=== PATIENT | female | born 1985 | race American Indian/Alaskan Native ===

== ENCOUNTER 2019-10-22 05:39 | Emergency (ER) | payer BC, MEDICAID, OTHER ==
[2019-10-22 06:43] LABS: Basophils % (Auto) 0.5 % (0.0-1.8); Eosinophils # (Auto) 0.1 K/mm3 (0.0-0.4); Eosinophils % (Auto) 2.1 % (0.0-4.3); Hematocrit 38.3 % (30.3-42.9); Hemoglobin 12.5 gm/dl (10.1-14.3); Lymphocytes # (Auto) 2.1 K/mm3 (1.2-5.4); Lymphocytes % (Auto) 32.5 % (13.4-35.0); Mean Corpuscular HGB Conc 33 % (30-34); Mean Corpuscular Volume 75 fl (79-97); Monocytes # (Auto) 0.5 K/mm3 (0.0-0.8); Monocytes % (Auto) 8.5 % (0.0-7.3); Platelet Count 221 K/mm3 (140-440); Red Blood Count 5.08 M/mm3 (3.65-5.03); Red Cell Distribution Width 14.4 % (13.2-15.2)
--- NOTE | 2019-10-22 07:22 | Ultrasound Report ---
ULTRASOUND OBSTETRIC INDICATION: vaginal bleeding. TECHNIQUE: Transabdominal and Transvaginal. COMPARISON: None available. FINDINGS: The uterus measures 7.5 x 3.9 x 5.0 cm. No intrauterine is identified. The endometrial stri pe is normal and measures 5 mm in thickness. No masses are seen. The ovaries are normal in size and appearance with expected color flow. The right ovary measures 2.4 x 1.2 x 1.6 cm and the left ovary measures 3.1 x 1.2 x 2.2 cm. No free fluid is seen. IMPRESSION: 1. No sonographic evidence of an intrauterine or ectopic . 2. No acute abnormality of the pelvis. Signer Name: Dewayne Biggs MD Signed: 10/22/2019 7:17 AM Workstation Name: [id number]
[2019-10-22] MEDS ORDERED: IBUPROFEN 800 MG TAB PO ONE (07:31)
--- NOTE | 2019-10-22 07:32 | Emergency Department Report ---
ED Female HPI - General Chief complaint: Vaginal Bleeding Stated complaint: EMESIS/VAGINAL BLEEDING Time Seen by Provider: 10/22/19 07:15 Source: patient Mode of arrival: Ambulatory Limitations: No Limitations - History of Present Illness Initial comments: This is a 33-year-old female who presents to ED complaining of vaginal bleeding that began this morning some mild abdominal cramping. Patient states that she took a test a few weeks ago and was positive. Patient states she has not been to [facility] for care or testing. Patient states last menstrual cycle was 08/29/2019. She denies dysuria, fever, chills, nausea vomiting. MD Complaint: vaginal bleeding Location: suprapubic Severity: moderate Quality: cramping Consistency: constant Worsens with: none Associated Symptoms: denies: vaginal discharge, vaginal bleeding - Related Data Previous Rx's Medication Instructions Recorded Last Taken Type Ibuprofen [Motrin 800 MG tab] 800 mg PO TID #30 tablet 10/22/19 Unknown Rx traMADoL [Ultram 50 MG tab] 50 mg PO Q6HR PRN #15 tablet 10/22/19 Unknown Rx Allergies Allergy/AdvReac Type Severity Reaction Status Date / Time No Known Allergies Allergy Unverified 03/02/14 12:25 ED Review of Systems ROS: Stated complaint: EMESIS/VAGINAL BLEEDING Other details as noted in HPI Comment: All other systems reviewed and negative ED Past Medical Hx - Past Medical History Previous Medical History?: No - Surgical History Past Surgical History?: Yes Additional Surgical History: Left foot - Social History Smoking Status: Never Smoker Substance Use Type: None - Medications Home Medications: Home Medications Medication Instructions Recorded Confirmed Last Taken Type Ibuprofen [Motrin 800 MG tab] 800 mg PO TID #30 tablet 10/22/19 Unknown Rx traMADoL [Ultram 50 MG tab] 50 mg PO Q6HR PRN #15 tablet 10/22/19 Unknown Rx ED Physical Exam - General Limitations: No Limitations General appearance: alert, in no apparent distress - Head Head exam: Present: atraumatic, normocephalic - Eye Eye exam: Present: normal appearance - ENT ENT exam: Present: mucous membranes moist - Neck Neck exam: Present: normal inspection - Respiratory Respiratory exam: Present: normal lung sounds bilaterally. Absent: respiratory distress - Cardiovascular Cardiovascular Exam: Present: regular rate, normal rhythm. Absent: systolic murmur, diastolic murmur, rubs, gallop - GI/Abdominal GI/Abdominal exam: Present: soft, normal bowel sounds - Extremities Exam Extremities exam: Present: normal inspection - Back Exam Back exam: Present: normal inspection - Neurological Exam Neurological exam: Present: alert, oriented X3 - Psychiatric Psychiatric exam: Present: normal affect, normal mood - Skin Skin exam: Present: warm, dry, intact, normal color. Absent: rash ED Course Vital Signs 10/22/19 10/22/19 05:43 08:00 Temperature 97.5 F L Pulse Rate 138 H 96 H Respiratory 18 16 Rate Blood Pressure 148/89 Blood Pressure 141/90 [Left] O2 Sat by Pulse 100 100 Oximetry ED Medical Decision Making - Lab Data Result diagrams: 10/22/19 06:04 - Radiology Data Radiology results: report reviewed, image reviewed ULTRASOUND OBSTETRIC INDICATION: vaginal bleeding. TECHNIQUE: Transabdominal and Transvaginal. COMPARISON: None available. FINDINGS: The uterus measures 7.5 x 3.9 x 5.0 cm. No intrauterine is identified. The endometrial stripe is normal and measures 5 mm in thickness. No masses are seen. The ovaries are normal in size and appearance with expected color flow. The right ovary measures 2.4 x 1.2 x 1.6 cm and the left ovary measures 3.1 x 1.2 x 2.2 cm. No free fluid is seen. IMPRESSION: 1. No sonographic evidence of an intrauterine or ectopic . 2. No acute abnormality of the pelvis. Signer Name: Dewayne Biggs MD Signed: 10/22/2019 7:17 AM Workstation Name: [id number] Transcribed By: [place] Dictated By: Dewayne Biggs MD Electronically Authenticated By: Dewayne Biggs MD Signed Date/Time: 10/22/19 0717 - Medical Decision Making 33-year-old female presents with vaginal bleeding secondary to menorrhagia/dysuria. test was negative in the ER. I discussed findings with the patient. Patient received Motrin in the ED. OB ultrasound was ordered per outside evaluation of the patient Ultrasound shows no intrauterine . I discussed with the patient has some signs that show cycles are basically. I discussed follow-up with [facility]. Vital signs normal patient on no acute distress or persistent distress Critical care attestation.: If time is entered above; I have spent that time in minutes in the direct care of this critically ill patient, excluding procedure time. 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
[2019-10-22 08:03] VITALS: BP 141/90
== END 2019-10-22 08:00 | disposition home or self-care (01) ==
LOC: ED 05:39
DX: N94.6 Dysmenorrhea, unspecified (principal); Z98.890 Other specified postprocedural states; Z79.899 Other long term (current) drug therapy
CPT/HCPCS: 36415; 76801; 76817; 84702; 85025; 86900; 86901